=== PATIENT | female | born 1990 | race African-American/Black ===

== ENCOUNTER 2025-01-07 00:58 | Day surgery (SDC) | payer OTHER, SELFPAY ==
[2025-01-06 12:06] VITALS: BMI 21.2
--- NOTE | 2025-01-06 12:15 | PC.NURSE ---
[facility] has started construction of its new state of the art ER which will open Spring 2026. With this, we anticipate parking may be a challenge for some our surgical patients and families. Parking spaces are limited but are available for all Surgical, obstetrics, and ER patients sharing this lot. If you arrive and find you are having a hard time finding a parking space, please note that we understand the challenges, please drive around the hospital and park near Hospital Entrance 1. When you enter this entrance, you can ask a volunteer to direct or take you back to the surgical waiting area to check in. We appreciate everyone?s understanding of these expected challenges while we build for your future. Report to the Outpatient Waiting Room, entrance under the green pavilion located off [address], at time _1130_ on date _[phone]_. Planned Procedure Time: _130pm_.? Time changes happen often and if your time is changed the preop area will call you the afternoon before. - You and your visitor will be asked to self-screen and do not enter if you have any COVID symptoms. Please call surgeon if you need to reschedule. - A mask is optional within the hospital at this time. Patients may have clear liquids (water, carbonated beverages, clear teas, apple juice) until 3 hours prior to surgery with a maximum of 20 ounces. - No food from midnight until time of surgery and no smoking, or chewing tobacco (or any form of nicotine). No chewing gum, candy or mints. Take only the following medications with a SIP of water on the morning of surgery: __BC pill____ DO NOT STOP ANY OF YOUR OTHER PRESCRIPTION MEDICATIONS PRIOR TO SURGERY EXCEPT THE FOLLOWING Hold all vitamins and supplements for 3 days per anesthesiologist. Medications to discontinue per physician Date to take last dose Please no make-up, nail marshallese, hairspray, perfume, deodorant, or body powder the day of surgery.? No jewelry (including any body piercings) or valuables the day of surgery, leave them at home.? Please take a shower or bath the night before, or the morning of, surgery with an antibacterial soap.? Wear comfortable, loose fitting clothing. - Jewelry must be removed prior to entering the operating room.? Rings and piercings that are not removed may be cut off. - The hospital will not accept responsibility for valuables.? - Please leave all valuables, including medications, at home the day of surgery. If you are going home after surgery, a licensed driver license technician must drive you home.? - NO public transportation without another adult if you receive anesthesia. - We recommend that an adult stay with you for 24 hours following discharge. - We also recommend that you do not drive, make important decision, drink alcoholic beverages, or take any drugs that were not prescribed by your health care provider for at least 24 hours after your discharge time. Follow any additional instructions given to you from your surgeon. Telephone instructions given to __Amanda__and asked if any additional questions and then verbalized understanding. Patient advised to call surgeon office or pre surgery nurse liaison [phone] if any additional questions.
--- OUTSIDE RECORDS SUMMARY | 2025-01-07 01:01 | XMS_ITS | Clinical Summary ---
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 Member Subscriber Plan / Payer (Ef fective 2018-Present) Name:Parul Fletcher Relation to Subscriber:Self Name:Chance Parul Hong Payer ID:[id number] ([facility]) Type:MEDICAID RISK OTHER Address: [address] [address] [facility] Care Teams Criminal Intelligence Analyst Relationship Specialty Start Date End Date No, Physician PCP - General 12/18/21
--- NOTE | 2025-01-07 09:36 | PM.IMHP ---
H&P: HPI History of Present Illness Date/Time: 01/07/25 09:36 Chief Complaint: retained nexplanon device Narrative: 34-year-old female who presents for Nexplanon device removal. Nexplanon device was palpated deep in the left upper extremity. Attempt was made at removal. Nexplanon device was noted to be too deep for removal in the office. Extensive dissection was attempted to remove device. Procedure was aborted due to development of edema and inability to palpate the device. Recommended excision of Nexplanon device in the operating removed. Review of Systems Cardiovascular: Cardiovascular: Denies chest pain, Denies leg edema, Denies palpitations, Denies dyspnea and Denies dyspnea on exertion Respiratory: Respiratory: Denies cough, Denies dyspnea and Denies dyspnea on exertion Gastrointestinal: Gastrointestinal: Denies abdominal pain, Denies constipation, Denies diarrhea, Denies nausea and Denies vomiting Genitourinary: Genitourinary: Denies hematuria, Denies urinary frequency, Denies dysuria, Denies pelvic pain, Denies urinary incontinence and Denies vaginal discharge Neurologic: Reports system reviewed and no additional complaints, except as documented Psychiatric: Psychiatric: Reports no additional psychiatric complaints Endocrine: Endocrine: Denies palpitations PMFSH Past Medical History Medical History (Updated 01/07/25 @ 09:42 by Valente Kim MD) Encounter for adjustment and management of other implanted devices Encounter for removal of intrauterine contraceptive device HSV-1 infection HSV-2 infection Encounter for screening examination for sexually transmitted disease Ectopic (~2017) laparoscopic treatment Surgical History Surgical History History of 03/10/12 03/05/15 01/16/18 Social History Social History (Updated 08/20/24 @ 11:07 by NOLVIA Osorio) Smoking status: Never smoker Second hand tobacco smoke exposure: No Alcohol intake: never Substance use: never Substance use type: does not use Do You Feel Safe in your Home?: Yes Lack of Transportation: No Lack of Food: Never True Current Housing: I Have Housing Concerned About Future Housing: No Difficulty Paying Gas/Electric Bills: No Difficulty Paying for Meds: YES Currently Unemployed: No Education: High School Diploma/GED Difficulty w/ Childcare or Family Care: No Living arrangements: with family Additional living arrangements comments: single 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 Gender identity (if verbalized by the patient): Female Sexual Orientation (if Verbalized by the Patient): Straight or Heterosexual Spiritual care concerns: No Meds Home Medications and Allergies Home Medications ?Medication ?Instructions ?Recorded ?Confirmed ?Type acyclovir 400 mg tablet 400 mg PO DAILY #30 tabs 08/20/24 01/06/25 Rx drospirenone 3 mg-ethinyl 1 tablet PO DAILY #84 tabs 11/18/24 01/06/25 Rx estradiol 0.02 mg tablet (SHELBI (28)) etonogestrel 68 mg subdermal 1 implant subdermal ONCE 12/25/24 12/25/24 History implant (Nexplanon) multivitamin (Daily Multi-Vitamin 1 tablet PO DAILY 01/06/25 01/06/25 History tablet) spironolactone 100 mg tablet 100 mg PO DAILY 01/06/25 01/06/25 History Allergies Allergy/AdvReac Type Severity Reaction Status Date / Time No Known Allergies Allergy Verified 01/06/25 12:04 Exam Const: General: no acute distress Eyes: EOM: EOMs intact bilaterally Neck: Neck: supple Thyroid: thyroid normal Chest: Breast/axilla inspection: normal inspection of the breasts Breast/axilla palpation: normal palpation of the breasts, normal palpation of the axillae and no axillary lymphadenopathy Resp: Effort & Inspection: normal respiratory effort Auscultation: clear to auscultation bilaterally Cardio: Rate: regular rate Rhythm: regular rhythm GI: Inspection: non-distended GI Palp: Yes Soft to palpation, No Tenderness to palpation present (GI) and No Guarding due to palpation present (GI) Auscultation: normal bowel sounds : General: No bladder normal to palpation External Female Exam: normal external appearance Speculum Exam - Vagina: normal vaginal discharge and No vaginal bleeding Speculum Exam - Cervix: nontender Bimanual exam- vagina & uterus: No bladder normal to palpation and No Cervical tenderness present OB/external & speculum: No vaginal bleeding Skin: General skin exam: normal color and no rashes or lesions noted Neuro: Cognition (Neuro): normal cognition Speech: normal speech Extrem: General: normal to inspection and no edema Psych: Mental Status: mental status grossly normal Affect: normal affect Assessment and Plan Assessment and plan (1) Failed Nexplanon removal: Code(s): Z30.46 - Encounter for surveillance of implantable subdermal contraceptive Status: Acute Assessment and Plan: Nexplanon device was palpated deep in the left upper extremity. Attempt was made at removal. Nexplanon device was noted to be too deep for removal in the office. Recommended excision of Nexplanon device in the operating removed.
[2025-01-07 12:20] VITALS: BP 105/80; PULSE 87; RESP 18; TEMP 36.2; O2SAT 100
[2025-01-07] MEDS: LACTATED RINGERS 1,000 ML 30 ML IV CONT (12:25)
--- NOTE | 2025-01-07 12:39 | WPDHPUPDATE1 ---
History and Physical Update Update Date/Time: 01/07/25 12:39 History and Physical has been reviewed, including an updated exam of the patient. There are NO changes in the patient's condition. Risks, benefits, and alternatives have been discussed and questions answered. Patient agrees to proceed with procedure.
--- NOTE | 2025-01-07 12:42 | WPDANESEPPF ---
Anes - Initial Pre Proc Eval Procedure: Operation Date: 01/07/25 13:30 Proposed Procedures p Excisional Removal of Nexplanon - Valente Kim MD Date/Time: 01/07/25 12:42 Surgeon: Valente Kim MD Pre Op Diagnosis: Retained Nexplanon Patient Data Age: 34 Gender: F Height: 1.7 m Weight: 63.4 kg Last Vital Signs Temp 36.2 C L 01/07/25 12:20 Pulse 87 01/07/25 12:20 Resp 18 01/07/25 12:20 BP 105/80 01/07/25 12:20 Pulse Ox 100 01/07/25 12:20 O2 Del Method Room Air 01/07/25 12:20 Allergies Allergy/AdvReac Type Severity Reaction Status Date / Time No Known Allergies Allergy Verified 01/07/25 12:26 Home Medications ?Medication ?Instructions ?Recorded ?Confirmed ?Type acyclovir 400 mg tablet 400 mg PO DAILY #30 tabs 08/20/24 01/07/25 Rx drospirenone 3 mg-ethinyl 1 tablet PO DAILY #84 tabs 11/18/24 01/07/25 Rx estradiol 0.02 mg tablet (SHELBI (28)) etonogestrel 68 mg subdermal 1 implant subdermal ONCE 12/25/24 01/07/25 History implant (Nexplanon) multivitamin (Daily Multi-Vitamin 1 tablet PO DAILY 01/06/25 01/07/25 History tablet) spironolactone 100 mg tablet 100 mg PO DAILY 01/06/25 01/07/25 History Patient hx anesthesia problems: none Family hx anesthesia problems: none Results Review: All pre-operative results and documents have been reviewed as part of the pre-operative evaluation. [facility] Past Medical History Medical History Encounter for adjustment and management of other implanted devices Encounter for removal of intrauterine contraceptive device HSV-1 infection HSV-2 infection Encounter for screening examination for sexually transmitted disease Ectopic (~2016) laparoscopic treatment Surgical History Surgical History History of 03/10/12 03/05/15 01/16/18 Social History Social History Smoking status: Never smoker Second hand tobacco smoke exposure: No Alcohol intake: never Substance use: never Substance use type: does not use Do You Feel Safe in your Home?: Yes Lack of Transportation: No Lack of Food: Never True Current Housing: I Have Housing Concerned About Future Housing: No Difficulty Paying Gas/Electric Bills: No Difficulty Paying for Meds: YES Currently Unemployed: No Education: High School Diploma/GED Difficulty w/ Childcare or Family Care: No Living arrangements: with family Additional living arrangements comments: single 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 Gender identity (if verbalized by the patient): Female Sexual Orientation (if Verbalized by the Patient): Straight or Heterosexual Spiritual care concerns: No Anes - Eval Final PreProcedure Day of Procedure 01/07/25 12:42 Patient weight: normal Heart: regular rate and rhythm Lungs: clear to auscultation Airway: Mallampati scale class II Neurological: alert and oriented Last oral intake: >/= 8 hours ASA classification: II Emergent: no Anesthetic plan: proceed Anesthesia type and monitoring: general GIVS and standard monitoring Results Review: All pre-operative results and documents have been reviewed as part of the pre-operative evaluation. Informed Consent: The patient's anesthetic plan and its attendant risks and benefits were discussed with the patient/family/POA. Questions were solicited and answers provided to the satisfaction of the patient/family/POA.
[2025-01-07 13:04] LABS: BEDSIDEPREGUCG Negative (Negative)
--- NOTE | 2025-01-07 13:07 | W.PM.PROC2 ---
Procedure Note - Detailed Date of Procedure 01/07/25 Pre-op Diagnosis Retained Nexplanon Post-op Diagnosis Same Procedure Performed Nexplanon removal Surgeon Valente Kim MD Anesthesia MAC Indications failed nexplanon removal in office Findings Nexplanon device deep in the left arm with scarring Description of Procedure The patient was taken to the OR and general anesthesia induced. She was prepped and draped in supine position. Her left arm was prepped with an iodine solution. The Nexplanon device was palpated. The area underneath the Nexplanon was anesthetized with 1% lidocaine. A linear incision with an 11 blade was made at the insertion site. Blunt dissection was performed with curved hemostats to help identify the encapsulated Nexplanon device. The encapsulating scar was incised with a scalpel and the device was removed. Good hemostasis was noted. The incision was reapproximated with Dermabond. Estimated Blood Loss 5 Drains No Packing No Pathology None sent Complications No immediate complications Condition Stable Disposition PACU [facility] Billing Surgery - Charge Forward: Surgery Billing
[2025-01-07 13:10] VITALS: BP 105/68; PULSE 92; RESP 12; O2SAT 100
[2025-01-07 13:30] VITALS: BP 105/67; PULSE 77; RESP 12; O2SAT 100
[2025-01-07 14:00] VITALS: BP 106/66; PULSE 76; RESP 14
== END 2025-01-07 14:15 | disposition home or self-care (01) ==
PROVIDERS: Visit Provider Student in an Organized Health Care Education/Training Program
PROC: (CPT 11982; principal; 2025-01-07 13:30)
DX: Z30.46 Encounter for surveillance of implantable subdermal contraceptive (principal); Z98.890 Other specified postprocedural states
CPT/HCPCS: 11982; J2250; J2270; J7120